=== PATIENT | female | born 1940 | race Two or more races ===

== ENCOUNTER 2020-12-03 15:00 | Inpatient (IN) | payer BC ==
[~2020-12-03] VITALS: Ht 165.1 cm; Wt 65.3 kg
--- NOTE | 2020-12-03 13:51 | NUR ---
Admitted patient from [facility]. Alert, oriented x2, episodes of forgetfulness. On O2 4 Lpm via nasal cannula tolerated. Denies pain or sob. In no acute distress. With left nephrostomy tube intact and draining. With hinojosa catheter intact and patent. No hematuria noted. Skin check done noted with dry, cracked lips. Patient's belongings inventoried by Switchboard Mechanic. Family is at bedside. JODY Zendejas aware. Dr. Ramirez aware.
[2020-12-03 15:50] VITALS: BP 147/52
[2020-12-03] MEDS ORDERED: GLYC15DR EACHEYE (16:52)
[2020-12-03] MEDS ORDERED: PROP15DR EACHEYE (16:52)
[2020-12-03] MEDS ORDERED: CEFTRIAXONE 1 G in IV DEXTROSE 5% 50 ML IV SCH (18:00)
--- NOTE | 2020-12-03 18:50 | NUR ---
Patient resting in bed family at bedside. No acute distress. Comfortable. Safety measures maintained. Kept comfortable.
--- NOTE | 2020-12-03 19:10 | NUR ---
Sleeping during initial rounds. at bedside. No s/s of respiratory distress. HOB slightly elevated. On continuos O2 at 4L/min via NC, saturating 96% at this time. No s/s of pain/discomforts noted. LH HL intact and patent. No s/s of infiltration noted. Safety measures and fall prevention maintained. Continue care as planned.
[2020-12-03 20:00] VITALS: BP 141/50
[2020-12-03] MEDS ORDERED: Z GUARD REMEDY PASTE 57 GM TUBE TOP PRN (20:15)
[2020-12-03] MEDS: ATORVASTATIN 20 MG TABLET PO SCH (21:20)
[2020-12-04 04:00] VITALS: BP 134/54
--- NOTE | 2020-12-04 06:22 | NUR ---
VS stable. Slept good. No complaint of pain/discomforts presented. All needs attended and met. No significant event reported all night. Continue current rehab plan of care.
[2020-12-04 08:00] VITALS: BP 132/50
[2020-12-04] MEDS: CHOLECALCIFEROL 400 UNITS TABLET PO SCH (08:12)
[2020-12-04] MEDS: DOCUSATE SODIUM 100 MG CAPSULE PO SCH (08:12)
[2020-12-04] MEDS: FENOFIBRATE NANOCRYSTALLIZED 145 MG TABLET PO SCH (08:14)
[2020-12-04 09:00] VITALS: BP 96/65
[2020-12-04] MEDS: CEFTRIAXONE 1 G in IV DEXTROSE 5% 50 ML IV SCH (10:58)
[2020-12-04] MEDS ORDERED: [UNRECOGNIZED DRUG - OTHER] EACHEYE PRN (12:15)
[2020-12-04] MEDS ORDERED: CHOL100043 PO (12:21)
[2020-12-04] MEDS ORDERED: FENO134C PO (12:21)
[2020-12-04] MEDS ORDERED: ATOR20TA PO (12:21)
[2020-12-04] MEDS ORDERED: DOCU100C36 PO (12:21)
[2020-12-04] MEDS ORDERED: DICL100G16 TP (12:21)
[2020-12-04 16:00] VITALS: BP_SYST 103; BP_SYST 112; BP_DIAS 49; BP_DIAS 52
[2020-12-04 20:15] VITALS: BP 123/45
[2020-12-04] MEDS: ATORVASTATIN 20 MG TABLET PO SCH (20:18)
[2020-12-05 04:09] VITALS: BP 115/47
--- NOTE | 2020-12-05 05:58 | NUR ---
Shift End Report: Vs stable, Slept well. No complaint presented all night. All needs attended and met. No significant event reported all night. Continue current rehab plan of care.
[2020-12-05 07:33] VITALS: BP 118/50
[2020-12-05] MEDS: CHOLECALCIFEROL 400 UNITS TABLET PO SCH (09:27)
[2020-12-05] MEDS: FENOFIBRATE NANOCRYSTALLIZED 145 MG TABLET PO SCH (09:27)
[2020-12-05] MEDS: DOCUSATE SODIUM 100 MG CAPSULE PO SCH (09:27)
[2020-12-05] MEDS: CEFTRIAXONE 1 G in IV DEXTROSE 5% 50 ML IV SCH (14:29)
[2020-12-05 20:34] VITALS: BP 132/52
[2020-12-05] MEDS: ATORVASTATIN 20 MG TABLET PO SCH (21:03)
[2020-12-05] MEDS: HYDROCODONE/APAP 5-325MG TABLET PO PRN (21:08)
[2020-12-06 04:55] VITALS: BP 123/48
--- NOTE | 2020-12-06 05:40 | NUR ---
Shift End Report: VS stable. Slept good after medicated for right ankle pain with help. No further complaint presented after. All needs attended and met. No significant event reported all night. Continue care as planned.
[2020-12-06 07:17] LABS: BASOPHILS # (AUTO) 0.1 K/uL (0.0-8.0); BASOPHILS % (AUTO) 0.8 % (0.0-2.0); EOSINOPHILS # (AUTO) 0.1 K/uL (0.0-0.7); EOSINOPHILS % (AUTO) 1.3 % (0.0-7.0); HEMATOCRIT 30.5 % (31.2-41.9); HEMOGLOBIN 10.1 g/dL (10.9-14.3); LYMPHOCYTES # (AUTO) 1.5 K/uL (20.0-40.0); LYMPHOCYTES % (AUTO) 19.1 % (20.5-51.5); MEAN CORPUSCULAR HEMOGLOBIN 32.4 uug (24.7-32.8); MEAN CORPUSCULAR HGB CONC 33 g/dL (32.3-35.6); MEAN CORPUSCULAR VOLUME 97.6 fL (75.5-95.3); MONOCYTES # (AUTO) 1.1 K/uL (2.0-10.0); MONOCYTES % (AUTO) 14.4 % (0.0-11.0); NEUTROPHILS % (AUTO) 64.4 % (38.5-71.5); PLATELET COUNT (AUTO) 412 K/uL (179-408); RED BLOOD CELL COUNT(AUTO) 3.12 MIL/uL (3.63-4.92); WHITE BLOOD COUNT (AUTO) 7.8 K/uL (3.8-11.8)
[2020-12-06 07:27] LABS: CREATININE 0.7 mg/dL (0.6-1.3); MAGNESIUM 1.8 mg/dL (1.8-2.4); PHOSPHOROUS 4.1 mg/dL (2.5-4.9); POTASSIUM 4.2 mmol/L (3.5-5.1)
[2020-12-06 07:30] VITALS: BP 121/44
[2020-12-06] MEDS: FENOFIBRATE NANOCRYSTALLIZED 145 MG TABLET PO SCH (08:19)
[2020-12-06] MEDS: CHOLECALCIFEROL 400 UNITS TABLET PO SCH (08:19)
[2020-12-06] MEDS: DOCUSATE SODIUM 100 MG CAPSULE PO SCH (08:19)
[2020-12-06] MEDS: HYDROCODONE/APAP 5-325MG TABLET PO PRN (08:20)
[2020-12-06 09:27] VITALS: BP 101/39
[2020-12-06] MEDS: CEFTRIAXONE 1 G in IV DEXTROSE 5% 50 ML IV SCH (11:43)
--- NOTE | 2020-12-06 15:56 | NUR ---
INDIVIDUALIZED PLAN OF CARE
[2020-12-06 16:00] VITALS: BP 114/43
--- NOTE | 2020-12-06 18:23 | NUR ---
Patient MRSA swab done. sent to laboratory. Patient low diastolic relayed to MD Ugarte. no new order as of this time. Patient encourage increase fluid intake. tolerated well. will continue monitor
--- NOTE | 2020-12-06 20:12 | NUR ---
Patient in bed alert x2 with O2 at 3 LPM via NC,sating at 100 %,No complaint of pain.HAs hinojosa catheter in place draining well with clear yellow output.Left nephrostomy tube intact.Site no s/s of infection.VSS .will continue to monitor.
[2020-12-06] MEDS: ATORVASTATIN 20 MG TABLET PO SCH (20:16)
[2020-12-06 20:37] VITALS: BP 109/64
[2020-12-07 04:46] VITALS: BP 122/62
[2020-12-07 08:00] VITALS: BP 135/51
[2020-12-07] MEDS: DOCUSATE SODIUM 100 MG CAPSULE PO SCH (08:33)
[2020-12-07] MEDS: CHOLECALCIFEROL 400 UNITS TABLET PO SCH (08:33)
[2020-12-07] MEDS: FENOFIBRATE NANOCRYSTALLIZED 145 MG TABLET PO SCH (08:35)
[2020-12-07] MEDS: CEFTRIAXONE 1 G in IV DEXTROSE 5% 50 ML IV SCH (11:33)
[2020-12-07 16:10] VITALS: BP 104/47
[2020-12-07 20:36] VITALS: BP 114/46
[2020-12-07] MEDS: ATORVASTATIN 20 MG TABLET PO SCH (20:41)
[2020-12-08 04:47] VITALS: BP 110/49
--- NOTE | 2020-12-08 06:27 | NUR ---
Shift End Report: VS stable, No complaint presented all night. Slept well. No s/s of adverse reaction noted from antibiotic IV. Nephrostomy and Mtz catheter both intact and patent. All needs attended and met. No significant event reported all night. Continue current rehab plan of care.
[2020-12-08 07:33] VITALS: BP 113/40
[2020-12-08] MEDS: FENOFIBRATE NANOCRYSTALLIZED 145 MG TABLET PO SCH (09:07)
[2020-12-08] MEDS: DOCUSATE SODIUM 100 MG CAPSULE PO SCH (09:07)
[2020-12-08] MEDS: CHOLECALCIFEROL 400 UNITS TABLET PO SCH (09:07)
[2020-12-08] MEDS: CEFTRIAXONE 1 G in IV DEXTROSE 5% 50 ML IV SCH (12:16)
--- NOTE | 2020-12-08 14:00 | NUR ---
Per Combination Worker, pt to have urology consult before discharge. HOME CARE ATTENDANT Zaira Méndez aware, order in place. Dr. Gennaro MD, notified.
--- NOTE | 2020-12-08 14:19 | NUR ---
Pt in no acute distress, resting in bed with Juan José at bedside. Nursing care discussed with pt and . Due medications given per order, no a/r noted. Mtz catheter patent and intact, draining yellow urine. Nephrostomy patent and intact with yellow output. Pt participated with Rehab Therapy, tolerated well. Safety measures, fall precautions, aspiration precautions in place. Call light and belongings within reach. Continue Rehab plane of care.
[2020-12-08 16:00] VITALS: BP 124/50
--- NOTE | 2020-12-08 18:12 | NUR ---
Pt finishing dinner, no acute distress, at bedside. METALLOGRAPHIC TECHNICIAN Zaira Méndez and Dr. Ramirez at bedside this afternoon, both spoke with pt and . Pt O2 saturation 98% on RA at this time. 100 mL yellow output from Nephrostomy tube. Will endorse to drill press hand nurse for continuity of care.
[2020-12-08 20:31] VITALS: BP 128/52
[2020-12-08] MEDS: ATORVASTATIN 20 MG TABLET PO SCH (20:43)
[2020-12-08] MEDS ORDERED: METHYL SALICYLATE/MENTHOL CREAM 28 GM TUBE TOP PRN (21:00)
[2020-12-09 04:51] VITALS: BP 125/50
--- NOTE | 2020-12-09 06:19 | NUR ---
Shift End Report: VS stable. No complaint presented all night. All needs attended and met. No significant event reported. Continue current plan of care.
[2020-12-09 07:55] VITALS: BP 121/46
[2020-12-09] MEDS: FENOFIBRATE NANOCRYSTALLIZED 145 MG TABLET PO SCH (08:28)
[2020-12-09] MEDS: DOCUSATE SODIUM 100 MG CAPSULE PO SCH (08:28)
[2020-12-09] MEDS: CHOLECALCIFEROL 400 UNITS TABLET PO SCH (08:28)
[2020-12-09] MEDS: CEFTRIAXONE 1 G in IV DEXTROSE 5% 50 ML IV SCH (11:03)
[2020-12-09] MEDS: HYDROCODONE/APAP 5-325MG TABLET PO PRN ×2 (11:23→20:19)
--- NOTE | 2020-12-09 12:00 | NUR ---
Pt reported wet feeling around L hand 22 g IV. Upon assessment, IV leaking. PIV removed, catheter intact, no shearing, no s/s of infiltration. Leaking occurred during IV Rocephin administration. Dr. Fernandez notified, per MD start new line and resume regular dose tomorrow. Pharmacy notified. New IV started: L FA 22 g, patent and intact.
[2020-12-09 16:00] VITALS: BP 110/42
--- NOTE | 2020-12-09 16:00 | NUR ---
Pt reported Mtz Catheter discomfort Pierce Louie DO, notified. Per DO, OK to discontinue Mtz Catheter.
[2020-12-09] MEDS ORDERED: MIRALAX 17 GM POWD.PACK PO ONE (17:15)
[2020-12-09] MEDS ORDERED: BISACODYL 10 MG SUPP.RECT RC ONE (17:15)
--- NOTE | 2020-12-09 17:45 | NUR ---
Per pt, no BM for 3 days. Pt stated she would feel more comfortable taking out Mtz Catheter after having BM. Prune juice and scheduled Colace given this shift, ineffective at this time. Dr. Rebecca KAUR notified with new orders. Dr. Fernandez also notified of order to discontinue Mtz Catheter. Per , discontinue Mtz Catheter after pt has BM.
--- NOTE | 2020-12-09 17:48 | NUR ---
Pt requested information on consult with Dr. Miguel MD, urology. This [facility] underwriter followed up with , who stated he would come see pt, possibly noemi. Pt informed.
--- NOTE | 2020-12-09 18:45 | NUR ---
50 mL yellow output drained from nephrostomy tube
--- NOTE | 2020-12-09 19:15 | NUR ---
No BM by end of shift. Will endorse to subassembler nurse for continuity of care.
[2020-12-09 20:00] VITALS: BP 145/60
[2020-12-09] MEDS: ATORVASTATIN 20 MG TABLET PO SCH (20:32)
--- NOTE | 2020-12-09 20:40 | NUR ---
Seen by the Urologist Dr Burdick with new order noted and carried out.
--- NOTE | 2020-12-09 21:05 | NUR ---
To CT abdomen/pervis via bed.
--- NOTE | 2020-12-09 21:24 | NUR ---
Back from CT scan. No problem presented.
[2020-12-10 04:00] VITALS: BP 124/53
[2020-12-10 05:48] LABS: BASOPHILS # (AUTO) 0.1 K/uL (0.0-8.0); EOSINOPHILS # (AUTO) 0.1 K/uL (0.0-0.7); EOSINOPHILS % (AUTO) 2.4 % (0.0-7.0); HEMATOCRIT 28.5 % (31.2-41.9); HEMOGLOBIN 9.4 g/dL (10.9-14.3); LYMPHOCYTES # (AUTO) 1.8 K/uL (20.0-40.0); LYMPHOCYTES % (AUTO) 30.4 % (20.5-51.5); MEAN CORPUSCULAR HEMOGLOBIN 32.2 uug (24.7-32.8); MEAN CORPUSCULAR HGB CONC 33 g/dL (32.3-35.6); MEAN CORPUSCULAR VOLUME 97.8 fL (75.5-95.3); MONOCYTES # (AUTO) 0.9 K/uL (2.0-10.0); MONOCYTES % (AUTO) 15.5 % (0.0-11.0); NEUTROPHILS # (AUTO) 3.1 K/uL (1.8-8.9); NEUTROPHILS % (AUTO) 50.7 % (38.5-71.5); PLATELET COUNT (AUTO) 350 K/uL (179-408); RED BLOOD CELL COUNT(AUTO) 2.91 MIL/uL (3.63-4.92); WHITE BLOOD COUNT (AUTO) 6.1 K/uL (3.8-11.8)
--- NOTE | 2020-12-10 05:53 | NUR ---
Shift End Report: Slept good. Medicated once for pain. No further complaint presented. All needs attended and met. No significant event reported. VS stable. Continue current rehab plan of care.
[2020-12-10 06:11] LABS: CREATININE 0.7 mg/dL (0.6-1.3); MAGNESIUM 1.6 mg/dL (1.8-2.4); POTASSIUM 4.3 mmol/L (3.5-5.1)
[2020-12-10 06:18] LABS: BAND % (MANUAL) 2 % (0-10); LYMPHOCYTES % (MANUAL) 27 % (20-40); MONOCYTES % (MANUAL) 11 % (2-10); NEUTROPHILS % (MANUAL) 60 % (42-75)
[2020-12-10 06:19] LABS: BAND % (MANUAL) 2 % (0-10); LYMPHOCYTES % (MANUAL) 27 % (20-40); MONOCYTES % (MANUAL) 11 % (2-10); NEUTROPHILS % (MANUAL) 60 % (42-75)
[2020-12-10 07:57] VITALS: BP 123/53
[2020-12-10] MEDS: HYDROCODONE/APAP 5-325MG TABLET PO PRN (08:59)
[2020-12-10] MEDS: DOCUSATE SODIUM 100 MG CAPSULE PO SCH (09:00)
[2020-12-10] MEDS: FENOFIBRATE NANOCRYSTALLIZED 145 MG TABLET PO SCH (09:00)
[2020-12-10] MEDS: CHOLECALCIFEROL 400 UNITS TABLET PO SCH (09:00)
[2020-12-10] MEDS: MAGNESIUM SULFATE/D5W 100 ML IV SCH ×2 (10:07→10:57)
[2020-12-10] MEDS: CEFTRIAXONE 1 G in IV DEXTROSE 5% 50 ML IV SCH (12:41)
[2020-12-10 15:06] VITALS: BP 123/51
--- NOTE | 2020-12-10 15:40 | NUR ---
per de luna to remove nephrostomy tube by IR ( interventional radiologist) spoke to [facility] radiologist from [place], relayed the order, per [facility] will arrange someone tomorrow to do it
--- NOTE | 2020-12-10 15:50 | NUR ---
hinojosa discontinued will continue to monitor for voiding
--- NOTE | 2020-12-10 18:20 | NUR ---
urostomy tube still intact at left upper back, draining yellow color fluid
[2020-12-10 20:00] VITALS: BP 138/58
[2020-12-10] MEDS: ATORVASTATIN 20 MG TABLET PO SCH (20:16)
--- NOTE | 2020-12-11 | NUR ---
RECEIVED PATIENT IN BED, ALERT AND VERBALLY RESPONSIVE. CAN MAKE NEEDS KNOWN. DENIES PAIN. S/P FC REMOVAL. PATIENT HAD X 1 EP BLADDER INCONTINENCE. NEPHROSTOMY TUBE DRAINING LIGHT YELLOW URINE. WILL CONTINUE TO MONITOR PATIENT.
[2020-12-11 04:00] VITALS: BP 131/55
[2020-12-11 05:45] LABS: CREATININE 0.7 mg/dL (0.6-1.3); POTASSIUM 4.6 mmol/L (3.5-5.1)
--- NOTE | 2020-12-11 06:00 | NUR ---
PATIENT HAD X1 MORE EP OF BLADDER INCONTINENCE. PATIENT SLEPT WELL DURING THE NIGHT. AFEBRILE THROUGHOUT SHIFT.
[2020-12-11 07:45] VITALS: BP 122/57
[2020-12-11] MEDS: CHOLECALCIFEROL 400 UNITS TABLET PO SCH (08:35)
[2020-12-11] MEDS: DOCUSATE SODIUM 100 MG CAPSULE PO SCH (08:36)
[2020-12-11] MEDS: FENOFIBRATE NANOCRYSTALLIZED 145 MG TABLET PO SCH (08:36)
[2020-12-11] MEDS: CEFTRIAXONE 1 G in IV DEXTROSE 5% 50 ML IV SCH (12:24)
--- NOTE | 2020-12-11 15:35 | NUR ---
patient nephrostomy tube is taken out by interventional radiologist, procedure tolerated well, status post removal of tube, no distress noted, dressing intact to left upper back
[2020-12-11 15:49] VITALS: BP 107/55
--- NOTE | 2020-12-11 16:33 | NUR ---
patient is ambulatory with fww with minimum assist, voided in the toilet, status post hinojosa removed yesterday, no bladder distension or discomfort noted.
[2020-12-11 20:00] VITALS: BP 107/54
[2020-12-11] MEDS: ATORVASTATIN 20 MG TABLET PO SCH (21:12)
[2020-12-12 04:00] VITALS: BP 116/56
--- NOTE | 2020-12-12 05:49 | NUR ---
Shift End Report: VS stable. No complaint presented all night. All needs attended and met. No significant event reported. Continue current plan of care.
[2020-12-12 08:01] VITALS: BP 120/56
[2020-12-12] MEDS: FENOFIBRATE NANOCRYSTALLIZED 145 MG TABLET PO SCH (10:22)
[2020-12-12] MEDS: CHOLECALCIFEROL 400 UNITS TABLET PO SCH (10:22)
[2020-12-12] MEDS: DOCUSATE SODIUM 100 MG CAPSULE PO SCH (10:22)
[2020-12-12 16:00] VITALS: BP 122/53
--- NOTE | 2020-12-12 19:20 | NUR ---
Patient report received from day shift. Patient seen resting in bed. Awake, alert and oriented x 3. No reports of pain at this time. Patient is comfortable on room air. No reports of shortness of breath or difficulty breathing. Patient's skin is intact. Bed in low and locked position. Safety precautions in place. Call light within reach.
[2020-12-12 20:00] VITALS: BP 131/59
[2020-12-12] MEDS: ATORVASTATIN 20 MG TABLET PO SCH (20:47)
[2020-12-13 04:00] VITALS: BP 147/55
[2020-12-13 05:53] LABS: BASOPHILS % (AUTO) 0.6 % (0.0-2.0); EOSINOPHILS # (AUTO) 0.2 K/uL (0.0-0.7); EOSINOPHILS % (AUTO) 4.9 % (0.0-7.0); HEMATOCRIT 29.6 % (31.2-41.9); HEMOGLOBIN 9.7 g/dL (10.9-14.3); LYMPHOCYTES # (AUTO) 1.8 K/uL (20.0-40.0); LYMPHOCYTES % (AUTO) 35.9 % (20.5-51.5); MEAN CORPUSCULAR HEMOGLOBIN 32.1 uug (24.7-32.8); MEAN CORPUSCULAR HGB CONC 33 g/dL (32.3-35.6); MEAN CORPUSCULAR VOLUME 97.6 fL (75.5-95.3); MONOCYTES # (AUTO) 0.8 K/uL (2.0-10.0); MONOCYTES % (AUTO) 16.6 % (0.0-11.0); NEUTROPHILS # (AUTO) 2.1 K/uL (1.8-8.9); PLATELET COUNT (AUTO) 288 K/uL (179-408); RED BLOOD CELL COUNT(AUTO) 3.03 MIL/uL (3.63-4.92)
[2020-12-13 06:00] LABS: CREATININE 0.8 mg/dL (0.6-1.3); MAGNESIUM 1.7 mg/dL (1.8-2.4); PHOSPHOROUS 3.8 mg/dL (2.5-4.9)
[2020-12-13 06:12] LABS: LYMPHOCYTES % (MANUAL) 25 % (20-40); MONOCYTES % (MANUAL) 21 % (2-10); NEUTROPHILS % (MANUAL) 50 % (42-75)
[2020-12-13 06:13] LABS: BASOPHILS % (MANUAL) 0 % (0-2); EOSINOPHILS % (MANUAL) 4 % (0-8)
--- NOTE | 2020-12-13 06:26 | NUR ---
Patient awake, alert and oriented x 3. Slept well through the night. No reports of pain at this time. No signs of distress or shortness of breath at this time. medications given as ordered. Bed in low and locked position. Call light within reach.
--- NOTE | 2020-12-13 07:30 | NUR ---
Sleeping, appears comfortable
[2020-12-13 08:00] VITALS: BP 117/57
[2020-12-13] MEDS: CHOLECALCIFEROL 400 UNITS TABLET PO SCH (09:05)
[2020-12-13] MEDS: DOCUSATE SODIUM 100 MG CAPSULE PO SCH (09:05)
[2020-12-13] MEDS: FENOFIBRATE NANOCRYSTALLIZED 145 MG TABLET PO SCH (09:05)
[2020-12-13] MEDS ORDERED: MAGNESIUM OXIDE 400 MG TABLET PO ONE (09:15)
--- NOTE | 2020-12-13 12:30 | NUR ---
With fair appetite. Repositioned comfortably
[2020-12-13 16:00] VITALS: BP 116/46
--- NOTE | 2020-12-13 17:41 | NUR ---
Voiding freely to adequate urine output. Afebrile.
--- NOTE | 2020-12-13 19:20 | NUR ---
Patient report received. Patient in bed resting. Awake, alert and oriented x 3. No reports of pain or shortness of breath at this time. Comfortable on room air. Bed in low and locked position. Safety precautions in place. Call light within reach.
[2020-12-13 20:00] VITALS: BP 122/52
[2020-12-13] MEDS: ATORVASTATIN 20 MG TABLET PO SCH (20:37)
[2020-12-14 04:00] VITALS: BP 133/49
--- NOTE | 2020-12-14 06:33 | NUR ---
Patient resting in bed. Awake, alert and oriented x 3. Patient comfortable on room air. No reports of pain or shortness of breath reported. Slept well. Vital signs stable. Medications given as ordered. Bed in low and locked position. Call light within reach.
[2020-12-14 08:17] VITALS: BP 118/53
[2020-12-14] MEDS: CHOLECALCIFEROL 400 UNITS TABLET PO SCH (08:37)
[2020-12-14] MEDS: FENOFIBRATE NANOCRYSTALLIZED 145 MG TABLET PO SCH (08:37)
[2020-12-14] MEDS: DOCUSATE SODIUM 100 MG CAPSULE PO SCH (08:37)
[2020-12-14 15:39] VITALS: BP 122/46
[2020-12-14 20:13] VITALS: BP 121/55
--- NOTE | 2020-12-14 20:19 | NUR ---
received awake,responsive, alert.with call light within reach.instructed to call if with needs
[2020-12-14] MEDS: ATORVASTATIN 20 MG TABLET PO SCH (21:20)
[2020-12-15 04:34] VITALS: BP 115/46
[2020-12-15 07:51] VITALS: BP 115/50
--- NOTE | 2020-12-15 08:30 | NUR ---
Dr. Gutiérrez at bedside this am, report given. Pt O2 saturation 96% on RA.
[2020-12-15] MEDS: CHOLECALCIFEROL 400 UNITS TABLET PO SCH (09:03)
[2020-12-15] MEDS: FENOFIBRATE NANOCRYSTALLIZED 145 MG TABLET PO SCH (09:03)
[2020-12-15] MEDS: DOCUSATE SODIUM 100 MG CAPSULE PO SCH (09:03)
--- NOTE | 2020-12-15 11:53 | NUR ---
Pt in no acute distress, able to verbalize needs, all needs met at this time. Pt OOB to bathroom, voiding freely and with one BM this am. Pt ambulated safely with FWW. Pt participated in rehab therapeutic activities, tolerated well. Pt denies SOB at rest and upon exeration, O2 saturation 96% on RA. Pt denies pain/discomfort. Safety measures and fall precautions in place. Call light and belongings within reach.
[2020-12-15 14:54] VITALS: BP 115/53
--- NOTE | 2020-12-15 18:24 | NUR ---
Pt in bed talking on phone, no acute distress, all needs met at this time. Juan José at bedside this afternoon, nursing care discussed with pt and . Pt to be discharged tomorrow, per pt excited to go home. L FA PIV removed, catheter intact, no evidence of shearing. Will endorse to oral therapist nurse for continuity of care.
[2020-12-15 20:29] VITALS: BP 116/54
[2020-12-15] MEDS: ATORVASTATIN 20 MG TABLET PO SCH (20:50)
[2020-12-16 04:42] VITALS: BP 115/52
[2020-12-16 07:55] VITALS: BP 111/79
[2020-12-16] MEDS: CHOLECALCIFEROL 400 UNITS TABLET PO SCH (08:02)
[2020-12-16] MEDS: DOCUSATE SODIUM 100 MG CAPSULE PO SCH ×2 (08:02→08:11)
[2020-12-16] MEDS: FENOFIBRATE NANOCRYSTALLIZED 145 MG TABLET PO SCH (08:02)
--- NOTE | 2020-12-16 09:33 | NUR ---
Pt to be discharged home with [facility] today. Pt received DME from [employer], [facility] and BS. Pt aware and willing. VSS. No SOB at rest or upon exertion. Pt voiding freely. Due medications given per order, no a/r noted. Pt participated with physical therapy today, tolerated well. Safety ensured. Call light and belongings within reach.
--- NOTE | 2020-12-16 15:39 | NUR ---
DISCHARGE NOTE: Pt left unit at 1510 via with [employer] employee. Pt assisted safely to WC. No acute distress noted. Belongings and pt's own medications accounted for. Pt denied missing items. Discharge prescription information provided to pt. Discharge instructions provided to pt, pt verbalized understanding.
== END 2020-12-16 15:15 | disposition home health service (06) | DRG 871 ==
PROVIDERS: ADMIT Physical Medicine & Rehabilitation Pain Medicine; ATTEND Physical Medicine & Rehabilitation Pain Medicine
PROC: 0TP5X0Z Removal of Drainage Device from Kidney, External Approach (ICD-10-PCS; principal; 2020-12-11)
DX: A41.51 Sepsis due to Escherichia coli [E. coli] (principal); I21.A1 Myocardial infarction type 2; J96.01 Acute respiratory failure with hypoxia; N17.9 Acute kidney failure, unspecified; N10 Acute pyelonephritis; N20.2 Calculus of kidney with calculus of ureter; G93.40 Encephalopathy, unspecified; D69.6 Thrombocytopenia, unspecified; I10 Essential (primary) hypertension; Z85.3 Personal history of malignant neoplasm of breast; Z92.3 Personal history of irradiation; Z90.11 Acquired absence of right breast and nipple; Z93.6 Other artificial openings of urinary tract status; B96.20 Unspecified Escherichia coli [E. coli] as the cause of diseases classified elsewhere; I13.10 Hypertensive heart and chronic kidney disease without heart failure, with stage 1 through stage 4 chronic kidney disease, or unspecified chronic kidney disease; F03.90 Unspecified dementia, unspecified severity, without behavioral disturbance, psychotic disturbance, mood disturbance, and anxiety; N18.9 Chronic kidney disease, unspecified; K57.90 Diverticulosis of intestine, part unspecified, without perforation or abscess without bleeding; Z87.891 Personal history of nicotine dependence
CPT/HCPCS: 36415; 70030-TC; 71045; 74018; 83735; 84100; 85025; J0696; J3475; J7040; J7050; J7060